=== PATIENT | female | born 1990 | race Caucasian/White ===

== ENCOUNTER 2017-10-01 10:55 | Inpatient (IN) | payer OTHER ==
[2017-10-01] MEDS ORDERED: CEFAZOLIN 2 GM/50 ML (PMX) 50 ML IV (11:00)
[2017-10-01] MEDS ORDERED: METHYLERGONOVINE 0.2 MG INJ IM ×2 (11:00→18:30)
[2017-10-01] MEDS ORDERED: MISOPROSTOL 200 MCG TAB PR ×2 (11:00→18:30)
[2017-10-01] MEDS ORDERED: OXYTOCIN 30 UNITS/LR 500 ML IV ×3 (11:00→18:30)
[2017-10-01] MEDS ORDERED: CARBOPROST 250 MCG INJ IM ×2 (11:00→18:30)
[2017-10-01 11:45] LABS: ADD MAN DIFF? NO
[2017-10-01 11:46] LABS: WHITE BLOOD COUNT 8.9 10^3/ul (4.8-10.8)
[2017-10-01 11:46] LABS: BASOPHILS % 0.1 % (0.0-2.0); EOSINOPHILS # 0.1 10^3/ul (0.0-0.5); EOSINOPHILS % 1.1 % (0.0-7.0); HEMATOCRIT 33.6 % (37.0-47.0); HEMOGLOBIN 11.2 g/dl (12.0-16.0); LYMPHOCYTES # 1.6 10^3/ul (0.8-2.9); LYMPHOCYTES % 18.1 % (15.0-51.0); MEAN CORPUSCULAR HEMOGLOBIN 27.7 pg (29.0-33.0); MEAN CORPUSCULAR HGB CONC 33.3 g/dl (32.0-37.0); MEAN CORPUSCULAR VOLUME 83.2 fl (82.0-101.0); MEAN PLATELET VOLUME 11.9 fl (7.4-10.4); MONOCYTE # 0.7 10^3/ul (0.3-0.9); MONOCYTES % 8.1 % (0.0-11.0); NEUTROPHIL # 6.3 10^3/ul (1.6-7.5); NEUTROPHILS % 70.8 % (39.0-77.0); PLATELET COUNT 225 10^3/UL (140-415); RED BLOOD COUNT 4.04 10^6/ul (4.20-5.40); RED CELL DISTRIBUTION WIDTH 14.6 % (11.5-14.5)
[2017-10-01] MEDS: LACTATED RINGER'S 1,000 ML IV ×4 (11:56→22:00)
[2017-10-01 12:19] LABS: INR 1.03; PROTIME 13.6 Sec (11.9-14.9); PT RATIO 1.1
[2017-10-01 12:20] LABS: PARTIAL THROMBOPLASTIN TIME 37.2 Sec (25.0-35.0)
[2017-10-01] MEDS: METOCLOPRAMIDE 10 MG INJ IV (13:44)
[2017-10-01] MEDS: ONDANSETRON 4 MG INJ IV (13:44)
[2017-10-01] MEDS: FAMOTIDINE 20 MG INJ IV (13:44)
[2017-10-01] MEDS ORDERED: morphine SULFATE/PF (10 MG/10 ML) INJ (14:22)
[2017-10-01] MEDS ORDERED: OXYTOCIN 10 UNIT INJ (14:24)
[2017-10-01 15:05] LABS: RAPID PLASMA REAGIN NONREACTIVE (NR)
[2017-10-01] MEDS ORDERED: KETOROLAC 30 MG INJ IV (16:00)
[2017-10-01] MEDS ORDERED: NALBUPHINE HCL (10 MG/1 ML) INJ IV (16:00)
[2017-10-01] MEDS ORDERED: ZOLPIDEM 5 MG TAB PO (16:00)
[2017-10-01] MEDS ORDERED: HYDROmorphONE (0.2 MG/ML) 10ML SYG IV ×3 (16:00)
[2017-10-01] MEDS ORDERED: NALOXONE (0.4 MG/ML) INJ IV (16:00)
[2017-10-01] MEDS ORDERED: ONDANSETRON 4 MG INJ IV ×2 (16:00)
[2017-10-01] MEDS ORDERED: METOCLOPRAMIDE 10 MG INJ IV (16:00)
[2017-10-01] MEDS: DIPHENHYDRAMINE 50 MG INJ IV (16:37)
[2017-10-01] MEDS: OXYTOCIN 30 UNITS/LR 500 ML IV (16:38)
[2017-10-01] MEDS ORDERED: NA PHOSPHATE/BIPHOS 133 ML ENEMA PR ×2 (18:30)
[2017-10-01] MEDS ORDERED: OXYCODONE/ACETAMINOPHEN (5/325) TAB PO (18:30)
[2017-10-01] MEDS ORDERED: HYDROCODONE/APAP (5/325) TAB PO (18:30)
[2017-10-01] MEDS: CEFAZOLIN 2 GM/50 ML (PMX) 50 ML IV (18:44)
[2017-10-01] MEDS: SENNA/DOCUSATE NA (8.6MG/50MG) TAB PO (21:00)
[2017-10-01] MEDS: IBUPROFEN 800 MG TAB PO (22:00)
[2017-10-01] MEDS ORDERED: IBUPROFEN 800 MG TAB PO (22:00)
[2017-10-02] MEDS: CLINDAMYCIN 300 MG CAP PO ×4 (01:23→18:01)
[2017-10-02] MEDS: LACTATED RINGER'S 1,000 ML IV ×3 (02:12→18:12)
[2017-10-02] MEDS: CEFAZOLIN 2 GM/50 ML (PMX) 50 ML IV ×2 (03:07→10:00)
[2017-10-02] MEDS: IBUPROFEN 800 MG TAB PO ×3 (06:00→21:47)
[2017-10-02] MEDS: HYDROmorphONE 0.5 MG/0.5 ML SYG IV ×2 (06:07→12:38)
[2017-10-02 07:27] LABS: ADD MAN DIFF? NO
[2017-10-02 07:37] LABS: BASOPHILS % 0.2 % (0.0-2.0); EOSINOPHILS # 0.1 10^3/ul (0.0-0.5); EOSINOPHILS % 0.8 % (0.0-7.0); HEMATOCRIT 33.9 % (37.0-47.0); HEMOGLOBIN 11.3 g/dl (12.0-16.0); LYMPHOCYTES # 1.3 10^3/ul (0.8-2.9); LYMPHOCYTES % 12.2 % (15.0-51.0); MEAN CORPUSCULAR HEMOGLOBIN 27.8 pg (29.0-33.0); MEAN CORPUSCULAR HGB CONC 33.3 g/dl (32.0-37.0); MEAN CORPUSCULAR VOLUME 83.3 fl (82.0-101.0); MEAN PLATELET VOLUME 11.4 fl (7.4-10.4); MONOCYTE # 0.8 10^3/ul (0.3-0.9); MONOCYTES % 7.7 % (0.0-11.0); NEUTROPHIL # 8.3 10^3/ul (1.6-7.5); NEUTROPHILS % 78.3 % (39.0-77.0); PLATELET COUNT 209 10^3/UL (140-415); RED BLOOD COUNT 4.07 10^6/ul (4.20-5.40); RED CELL DISTRIBUTION WIDTH 14.1 % (11.5-14.5)
[2017-10-02 07:37] LABS: WHITE BLOOD COUNT 10.6 10^3/ul (4.8-10.8)
[2017-10-02] MEDS: SENNA/DOCUSATE NA (8.6MG/50MG) TAB PO ×2 (09:59→21:47)
[2017-10-02] MEDS: BISACODYL 10 MG SUPP PR (10:00)
[2017-10-02] MEDS: INFLUENZA VIRUS VACCINE 0.5 ML (DISPENSING) IM* (15:06)
[2017-10-03] MEDS: CLINDAMYCIN 300 MG CAP PO ×4 (00:07→17:25)
[2017-10-03] MEDS: IBUPROFEN 800 MG TAB PO ×3 (05:44→21:35)
[2017-10-03] MEDS: SENNA/DOCUSATE NA (8.6MG/50MG) TAB PO ×2 (09:42→21:35)
[2017-10-04] MEDS: CLINDAMYCIN 300 MG CAP PO ×3 (01:50→11:43)
[2017-10-04] MEDS: IBUPROFEN 800 MG TAB PO (06:26)
[2017-10-04] MEDS: SENNA/DOCUSATE NA (8.6MG/50MG) TAB PO (09:28)
[2017-10-04] MEDS: LANOLIN 7 GM TUBE TOP (09:28)
[2017-10-04] MEDS: DIPHTH/TET/ACEL PERTUSS (ADULT) 0.5 ML VIAL IM* (11:43)
== END 2017-10-04 13:05 | disposition home or self-care (01) | DRG 766 ==
LOC: L-D 10:55 → PP1 18:09
PROVIDERS: Obstetrics & Gynecology
PROC: 10D00Z1 Extraction of Products of Conception, Low, Open Approach (ICD-10-PCS; principal; 2017-10-01 14:00)
PROC: 4A1HXCZ Monitoring of Products of Conception, Cardiac Rate, External Approach (ICD-10-PCS; 2017-10-01 14:00)
DX: O34.211 Maternal care for low transverse scar from previous cesarean delivery (principal); Z37.0 Single live birth; Z3A.39 39 weeks gestation of pregnancy; Z23 Encounter for immunization
CPT/HCPCS: 85025; 85610; 85730; 86592; 86850; 86900; 86901; 90686; 90715; 99464

== ENCOUNTER 2017-10-13 10:25 | Emergency (ER) | payer OTHER ==
[2017-10-13 12:00] LABS: ADD MAN DIFF? NO
[2017-10-13 12:16] LABS: ADD UMIC YES; UR ASCORBIC ACID NEGATIVE (NEGATIVE); UR BILIRUBIN (Dip) NEGATIVE (NEGATIVE); UR BLOOD (Dip) 2+ mg/dL (NEGATIVE); UR CLARITY CLEAR (CLEAR); UR COLOR YELLOW (YELLOW); UR GLUCOSE (Dip) NEGATIVE (NEGATIVE); UR KETONES (Dip) NEGATIVE (NEGATIVE); UR LEUKOCYTE ESTERASE (Dip) TRACE Leu/ul (NEGATIVE); UR NITRITE (Dip) NEGATIVE (NEGATIVE); UR NONSQUAMOUS EPITHELIAL CELL 1 /HPF (NONE SEEN); UR RBC 3 /HPF (0-5); UR SPECIFIC GRAVITY (Dip) 1.016 (1.003-1.030); UR TOTAL PROTEIN (Dip) NEGATIVE (NEGATIVE); UR UROBILINOGEN (Dip) NEGATIVE (NEGATIVE); UR WBC 7 /HPF (0-5)
[2017-10-13 12:25] LABS: ALANINE AMINOTRANSFERASE 101 IU/L (13-69); ALBUMIN 4.4 g/dl (3.3-4.9); ALBUMIN/GLOBULIN RATIO 1.02; ALKALINE PHOSPHATASE 137 IU/L (42-121); ANION GAP 21 (8-16); ASPARTATE AMINO TRANSFERASE 71 IU/L (15-46); BILIRUBIN,INDIRECT 0.3 mg/dl (0-1.1); BILIRUBIN,TOTAL 0.3 mg/dl (0.2-1.3); BLOOD UREA NITROGEN 15 mg/dl (7-20); CALCIUM 9.8 mg/dl (8.4-10.2); CARBON DIOXIDE 24 mmol/L (21-31); CHLORIDE 105 mmol/L (97-110); CREATININE 0.65 mg/dl (0.44-1.00); GLUCOSE 79 mg/dl (70-220); POTASSIUM 4.3 mmol/L (3.5-5.1); SODIUM 146 mmol/L (135-144); TOTAL PROTEIN 8.7 g/dl (6.1-8.1)
[2017-10-13 12:31] LABS: BASOPHIL # 0.1 10^3/ul (0.0-0.1); BASOPHILS % 0.9 % (0.0-2.0); EOSINOPHILS # 1.1 10^3/ul (0.0-0.5); EOSINOPHILS % 12.2 % (0.0-7.0); HEMOGLOBIN 13.7 g/dl (12.0-16.0); LYMPHOCYTES # 2.4 10^3/ul (0.8-2.9); LYMPHOCYTES % 25.9 % (15.0-51.0); MEAN CORPUSCULAR HEMOGLOBIN 27.6 pg (29.0-33.0); MEAN CORPUSCULAR HGB CONC 32.6 g/dl (32.0-37.0); MEAN CORPUSCULAR VOLUME 84.5 fl (82.0-101.0); MEAN PLATELET VOLUME 11.5 fl (7.4-10.4); MONOCYTE # 0.6 10^3/ul (0.3-0.9); NEUTROPHIL # 4.9 10^3/ul (1.6-7.5); NEUTROPHILS % 52.8 % (39.0-77.0); PLATELET COUNT 261 10^3/UL (140-415); RED BLOOD COUNT 4.97 10^6/ul (4.20-5.40); RED CELL DISTRIBUTION WIDTH 13.7 % (11.5-14.5)
[2017-10-13 12:31] LABS: WHITE BLOOD COUNT 9.2 10^3/ul (4.8-10.8)
== END 2017-10-13 13:52 | disposition home or self-care (01) ==
LOC: FTE 10:25
DX: O90.0 Disruption of cesarean delivery wound (principal)
CPT/HCPCS: 76536; 80053; 81001; 85025; 99284-25